=== PATIENT | male | born 1965 | race Caucasian/White ===

== ENCOUNTER → 2017-03-10 | Outpatient (CLI) | payer OTHER ==
[~2017-03-10] MED LIST: CARAFATE1 G1 PO
[2017-03-10 14:21] LABS: ALBUMIN 3.6 gm/dl (3.1-4.5); ALKALINE PHOSPHATASE 58 U/L (45-117); BILIRUBIN, DIRECT < 0.1 mg/dL (0.0-0.2); SGOT/AST 45 IU/L (3-35); SGPT/ALT 70 U/L (12-78); TOTAL PROTEIN 7.5 gm/dL (6.4-8.2)
[2017-03-10 14:22] LABS: ETHYL ALCOHOL < 3.0 mg/dl (<3)
== END | disposition home or self-care (01) ==
LOC: LAB 13:18
PROVIDERS: Internal Medicine
DX: R94.5 Abnormal results of liver function studies (principal)

== ENCOUNTER 2020-09-07 13:45 | Emergency (ER) | payer BC ==
[~2020-09-07] VITALS: Ht 170.1 cm; Wt 82.6 kg
[2020-09-07 14:51] VITALS: BP 164/98
[2020-09-07] MEDS ORDERED: PREDNISONE50 MG PO (14:55)
[2020-09-07] MEDS ORDERED: ARTIFICIALS TEA30 ML OP (14:55)
[2020-09-07] MEDS ORDERED: AMOXICILLIN500 M3 PO (14:56)
== END 2020-09-07 15:15 | disposition home or self-care (01) ==
LOC: ED 13:45
DX: G51.0 Bell's palsy (principal); I10 Essential (primary) hypertension

== ENCOUNTER → 2021-01-07 | Outpatient (CLI) | payer BC ==
[~2021-01-07] MED LIST changes: +AMOXICILLIN500 M3 PO; +ARTIFICIALS TEA30 ML OP; +PREDNISONE50 MG PO
== END | disposition home or self-care (01) ==
LOC: LAB 09:13 → CARD 09:13
PROVIDERS: ATTEND Internal Medicine
DX: I10 Essential (primary) hypertension (principal)

== ENCOUNTER → 2021-07-20 | Outpatient (CLI) | payer BC ==
[2021-07-20 15:18] LABS: BILIRUBIN Negative (Negative); BLOOD Negative (Negative); CLARITY Clear (Clear); COLOR Yellow (Yellow); GLUCOSE Negative (Negative); KETONE Negative (Negative); LEUKO ESTERASE Negative (Negative); NITRITE Negative (Negative); UROBILINOGEN 0.2 E.U./dl (0.0-1.0)
[2021-07-20 15:18] LABS: BASO # 0.1 10*3/uL (0.0-0.1); BASO % 0.7 % (0.0-1.0); EOS # 0.4 10*3/uL (0.0-0.4); EOS % 5.3 % (1.0-4.0); HEMATOCRIT 47.4 % (42.0-52.0); LYMPH # 1.9 10*3/uL (1.3-4.4); MEAN CELL VOLUME 86.3 fl (80.0-94.0); MEAN CORPUSCULAR HGB 28.4 pg (27.0-31.0); MEAN CORPUSCULAR HGB CONC 32.9 g/dl (33.0-37.0); MEAN PLATELET VOLUME 8.7 fl (9.6-12.3); MONO # 0.9 10*3/uL (0.1-1.0); MONO % 11.3 % (3.0-9.0); NEUT # 4.8 10*3/uL (2.3-7.9); NEUT % 59.2 % (47.0-73.0); PLATELET COUNT AUTOMATED 262 10*3/uL (130-400); RED BLOOD COUNT 5.49 10*6/uL (4.50-5.90); RED CELL DISTRI WIDTH 14.6 % (0-14.5); WHITE BLOOD COUNT 8.1 10*3/uL (4.8-10.8)
[2021-07-20 15:32] LABS: BUN 13 mg/dl (7-24); CHLORIDE 104 mmol/L (98-107); CREATININE 0.87 mg/dL (0.70-1.30); POTASSIUM 3.7 mmol/L (3.5-5.1); SODIUM 141 mmol/L (136-145)
[2021-07-20 15:44] LABS: ACT PARTIAL THROMBO TIME 29.3 SECONDS (20.0-32.1); INTERNATIONAL NORM RATIO 0.9 (2.0-3.5)
[2021-07-20 16:17] LABS: BACTERIA TRACE; EPITHELIAL CELLS 0-2
== END | disposition home or self-care (01) ==
LOC: LAB 14:48
PROVIDERS: ATTEND Orthopaedic Surgery
DX: M48.02 Spinal stenosis, cervical region (principal)